=== PATIENT | female | born 1950 | race Caucasian/White ===

== ENCOUNTER 2017-01-01 03:42 | Emergency (ER) | payer OTHER ==
[~2017-01-01] VITALS: Ht 167.6 cm; Wt 65.0 kg
[~2017-01-01 03:42] MED LIST: BACL10TA; BIOTCAP PO; CLON1 PO; DILA2TAB4 PO; LACO100 PO; LORA1TAB PO; MULTTAB; POLY119S PO; SUCR1TAB PO; SYNT137T PO; TOPA200T4 PO; VITA100017 PO; ZOFR4TAB3 SL; ZOLO25TA PO
[2017-01-01 03:45] VITALS: BP 111/70; PULSE 71; RESP 14; TEMP 98.8; O2SAT 94
[2017-01-01] MEDS ORDERED: HYDR4TAB PO (04:14)
[2017-01-01] MEDS ORDERED: CLON1 PO (04:14)
[2017-01-01] MEDS ORDERED: CARB25TA9 PO (04:14)
[2017-01-01] MEDS ORDERED: CORT5TAB PO ×2 (04:14)
[2017-01-01] MEDS ORDERED: LORA-474 PO (04:14)
[2017-01-01] MEDS ORDERED: SERT25TA83 PO (04:14)
[2017-01-01] MEDS ORDERED: DONE1TAB90 PO (04:14)
[2017-01-01] MEDS ORDERED: ZOFR4TAB PO (04:14)
[2017-01-01] MEDS ORDERED: BACL10TA PO (04:14)
[2017-01-01] MEDS ORDERED: LEVO-86 PO (04:14)
[2017-01-01] MEDS ORDERED: TOPI200 PO (04:14)
[2017-01-01] MEDS ORDERED: SUCR1TAB PO (04:14)
[2017-01-01] MEDS ORDERED: LACO100 PO (04:14)
[2017-01-01] MEDS ORDERED: PROT40TA PO (04:14)
--- NOTE | 2017-01-01 04:33 | PD ---
HPI Chief Complaint: Fall Time Seen by Provider: 03:58 Travel History International Travel<30 days: No Contact w/Intl Traveler<30days: No Traveled to known affect area: No History of Present Illness HPI 66-year-old female came into the emergency room for right sided facial injury secondary to a fall while she was running. Patient says she has history of parkinsonism and she was running with a friend 2 days ago when she lost her balance and fell. She landed on the concrete on the right side of her face. She is not sure but she could've blacked out she said. Since then she's been having the facial swelling and the pain is getting worse. She also has significant nausea. Her is here with her and mentioned that she has history of brain tumor that was operated and treated in 2003. Currently she is cancer free. Patient is not on any blood thinners. [facility] Past Medical History Narrative Medical List of her past medical, surgical, social and family history is reviewed from the nursing note. Blood Disorders: No Cancer: Yes (GLEOMA BRAIN STEM) Cardiovascular Problems: No Chemotherapy: Yes (also radiation, both not at present; brain tumor) Diminished Hearing: No Endocrine: Yes Gastrointestinal Disorders: Yes GERD: Yes Genitourinary: No Headaches: Yes Implanted Vascular Access Dvce: Yes Musculoskeletal: No Neurologic: Yes (SEIZURES-+) Parkinson's Disease: Yes Psychiatric: No Reproductive: No Respiratory: No Radiation Therapy: Yes Seizures: Yes Thyroid Disease: Yes (HOSHIMOTOS) Ulcer: Yes Tetanus Vaccination: < 5 Years Influenza Vaccination: Yes : 3 Para: 3 Past Surgical History Abdominal Surgery: Yes (BOWEL RESECTION 3 FEET AND 6 FEET REMOVED FROM SMALL AND LARGE INTESTINES) Appendectomy: Yes Body Medical Devices: LEFT SC PORT Cholecystectomy: Yes Gynecologic Surgery: Yes (OVARY REMOVED STILL HAS ONE ) Hysterectomy: Yes Other Surgery: Yes (QUILLER RUNNER SHUNT X 2) Social History Alcohol Use: No Tobacco Use: No Substance Use: No Allergies-Medications (Allergen,Severity, Reaction): Coded Allergies: Bactrim (Verified Allergy, Severe, Hives, 01/01/17) Comments List of her allergies reviewed from the nursing note. Reported Meds & Prescriptions Reported Meds & Active Scripts Active Reported Cortef (Hydrocortisone) 5 Mg Tab 2.5 Mg PO HS Take with food to decrease GI upset Cortef (Hydrocortisone) 5 Mg Tab 5 Mg PO DAILY@0600 Take with food to decrease GI upset Donepezil Hydrochloride 5 Mg Tab 5 Mg PO HS Carbidopa-Levodopa 25-100 Mg Tab 1 Tab PO TID Baclofen 10 Mg Tab 10 Mg PO Q8HR PRN Hydromorphone (Hydromorphone HCl) 4 Mg Tab 4 Mg PO QID Protonix (Pantoprazole Sodium) 40 Mg Tab 40 Mg PO DAILY Synthroid (Levothyroxine Sodium) 137 Mcg Tab 137 Mcg PO DAILY Klonopin (Clonazepam) 1 Mg Tab 1 Mg PO TID Topamax (Topiramate) 200 Mg Tab 200 Mg PO BID Vimpat (Lacosamide) 100 Mg Tab 100 Mg PO TID Ativan (Lorazepam) 1 Mg Tab 1 Mg PO DAILY PRN Zofran (Ondansetron HCl) 4 Mg Tab 4 Mg PO Q12HR PRN Sertraline (Sertraline HCl) 25 Mg Tab 25 Mg PO DAILY Sucralfate 1 Gm Tab 1 Gm PO BID on empty stomach Narrative Medication List of her home medications reviewed from the nursing note. Review of Systems Except as stated in HPI: all other systems reviewed are Neg Physical Exam Narrative GENERAL: Awake, alert, moderate distress SKIN: Focused skin assessment warm/dry. Contusion on the right side of the face with some swelling and periorbital ecchymosis. HEAD: Atraumatic. Normocephalic. EYES: Pupils equal and round. No scleral icterus. No injection or drainage. Equal and conjugate extraocular movements of the eye ENT: No nasal bleeding or discharge. Mucous membranes pink and moist. NECK: Trachea midline. No JVD. CARDIOVASCULAR: Regular rate and rhythm. No murmur appreciated. RESPIRATORY: No accessory muscle use. Clear to auscultation. Breath sounds equal bilaterally. GASTROINTESTINAL: Abdomen soft, non-tender, nondistended. Hepatic and splenic margins not palpable. MUSCULOSKELETAL: No obvious deformities. No clubbing. No cyanosis. No edema. NEUROLOGICAL: Awake and alert. No obvious cranial nerve deficits. Motor grossly within normal limits. Normal speech. PSYCHIATRIC: Appropriate mood and affect; insight and judgment normal. Data Data Last Documented VS Vital Signs Date Time Temp Pulse Resp B/P Pulse Ox O2 Delivery O2 Flow Rate FiO2 01/01/17 03:45 98.8 71 14 111/[address] Brain W/O Iv Contrast(Rout) (4/28/17 ) Ct Facial Bones W/O Iv Cont (01/01/17 ) Ondansetron Odt (Zofran Odt) (01/01/17 04:45) Acetamin-Hydrocod 325-5 Mg ([place] 5-325 (01/01/17 04:45) MDM Medical Decision Making Medical Screen Exam Complete: Yes Emergency Medical Condition: Yes Medical Record Reviewed: Yes Differential Diagnosis Intracranial bleed, skull fracture, facial fracture, contusion Narrative Course 6:[address] scan was within normal limits. She has some soft tissue swelling but otherwise negative from trauma standpoint. Patient was given by mouth pain medication and nausea medicine. Patient will be discharged home. Procedures EKG Prior to Arrival: No Diagnosis Primary Impression: Fall Qualified Code: W19.XXXA - Fall, initial encounter Additional Impression: Facial contusion Qualified Code: S00.83XA - Facial contusion, initial encounter Referrals: Primary Care Physician 3 days Additional Instructions: Please apply cold compress to the swelling. Follow-up with your primary care next week. Return to the ER if the condition worsens or any other new concerns. Med/Other Pt SpecificInfo: No Change to Meds Disposition: 01 DISCHARGE HOME Condition: Stable Ricci Roberts MD Jan 01, 2017 04:33
[2017-01-01] MEDS ORDERED: ACETAMINOPHEN/HYDROcodone 325 MG/5 MG TAB PO ONE (04:45)
[2017-01-01] MEDS ORDERED: ONDANSETRON ODT 4 MG TAB PO ONE (04:45)
--- NOTE | 2017-01-01 05:23 | RADRPT ---
EXAM DATE/TIME: 01/01/2017 05:13 [facility] COMPARISON: MRI BRAIN W & W/O CONTRAST, June 22, 2016, 22:25. INDICATIONS : Trauma, fall. RADIATION DOSE: 56.35 CTDIvol (mGy) MEDICAL HISTORY : None SURGICAL HISTORY : None. ENCOUNTER: Initial ACUITY: 2 days PAIN SCALE: 5/10 LOCATION: cranial TECHNIQUE: Multiple contiguous axial images were obtained of the head. Using automated exposure control and adj ustment of the mA and/or kV according to patient size, radiation dose was kept as low as reasonably a chievable to obtain optimal diagnostic quality images. FINDINGS: Patient is shunted. Ventriculostomy catheter enters on the right. Anterior horn of the right lateral ventricle is slitlike but similar to the prior MRI. No ventriculomegaly demonstrated. No intracranial hemorrhage or hematoma. No mass, mass effect or midline shift demonstrated. No e vidence of an acute ischemic event. Skull is intact. Small debris seen in the visualized left maxillary air cell. CONCLUSION: No bleed or other acute intracranial abnormality. Chicho Schreiber MD on January 01, 2017 at 5:19 Board Certified Radiologist. This report was verified electronically.
--- NOTE | 2017-01-01 05:32 | RADRPT ---
EXAM DATE/TIME: 01/01/2017 05:15 [facility] COMPARISON: No previous studies available for comparison. INDICATIONS : Trauma, fall. RADIATION DOSE: 36.45 CTDIvol (mGy) MEDICAL HISTORY : None SURGICAL HISTORY : None. ENCOUNTER: Initial ACUITY: 2 days PAIN SCORE: 5/10 LOCATION: facial TECHNIQUE: Volumetric scanning of the facial bones was performed. Using automated exposure control and adjustme nt of the mA and/or kV according to patient size, radiation dose was kept as low as reasonably achiev able to obtain optimal diagnostic quality images. FINDINGS: ORBITS: The orbital and infraorbital osseous structures are intact. The retroconal structures have a normal configuration. No radiopaque foreign bodies are seen. NASAL BONE: The nasal bone and maxillary spine are intact ZYGOMATIC ARCHES: Symmetric without evidence of fracture. SINUSES: Small low attenuation fluid in the left maxillary air cell, does not have the appearance of blood. NASAL CAVITY: The nasal septum is intact and midline. The lacrimal ducts are intact. SOFT TISSUES: Mild swelling right cheek. INTRACRANIAL: No intracranial air seen. CRIBIFORM PLATE: Grossly intact. CONCLUSION: No facial fracture. Right cheek contusion. Left maxillary sinusitis. Chicho Schreiber MD on January 01, 2017 at 5:29 Board Certified Radiologist. This report was verified electronically.
== END 2017-01-01 06:33 | disposition home or self-care (01) ==
LOC: NEPC 03:42
DX: S09.93XA Unspecified injury of face, initial encounter (principal); G20 Parkinson's disease; W01.0XXA Fall on same level from slipping, tripping and stumbling without subsequent striking against object, initial encounter; Y93.02 Activity, running; Y92.89 Other specified places as the place of occurrence of the external cause; R56.9 Unspecified convulsions; Z98.2 Presence of cerebrospinal fluid drainage device; Z85.841 Personal history of malignant neoplasm of brain
CPT/HCPCS: 70450; 70486

== ENCOUNTER → 2017-06-23 | Outpatient (CLI) | payer OTHER ==
[~2017-06-23] VITALS: Ht 160 cm; Wt 61.8 kg
[~2017-06-23] MED LIST changes: -BACL10TA; +BACL10TA PO; -BIOTCAP PO; +CARB25TA9 PO; +CHLORHEXIDINE GLUCONATE 2 % 1 PACK (2 CLOTHS) TOPICAL PRN; +CORT5TAB PO; +DEXTROSE 5% IN WATE 1000ML INJ 1,000 ML IV SCH; -DILA2TAB4 PO; +DONE1TAB90 PO; +HYDR4TAB PO; +HYDR5TAB64 PO; +INSULIN HUMAN REGULAR 1,000 UNITS/10 ML VIAL SQ PRN; +LACTATED RINGER'S 1000 ML IV PRN; +LEVO-154 PO; +LEVO-86 PO; +LIDOCAINE HCL 1% PF 5 ML AMPULE OTHER ONE; +LORA-474 PO; -LORA1TAB PO; +METOPROLOL TARTRATE 25 MG TAB PO PRN; +MIDO10TA PO; -MULTTAB; -POLY119S PO; +POLY17S PO; +POVIDONE IODINE 5% (ANTISEPSIS KIT) 4 APPLICATIONS EACH NARE PRN; +PROPOFOL 200 MG/20 ML AMP IV ONE; +PROT40TA PO; +SERT25TA83 PO; +SODIUM CHLORID 0.9% 500 ML IV PRN; +SODIUM CHLORIDE 0.9% FLUSH 10 ML FLUSH IV FLUSH PRN; -SYNT137T PO; -TOPA200T4 PO; +TOPI200 PO; -VITA100017 PO; +ZOFR4TAB PO; -ZOFR4TAB3 SL; -ZOLO25TA PO
--- NOTE | 2017-06-23 08:15 | GIPROC ---
[facility] [address] [facility]. [facility], [address] COLONOSCOPY PROCEDURE REPORT EXAM DATE: 06/23/2017 PATIENT NAME: Riana Toney MR #: [id number] BIRTHDATE: 1950 ENDOSCOPIST: Isabelle Hurtado MD ORDER #: [id number] NIB ASSEMBLER: Kacie Mckeon and Luz Flores STATUS: outpatient INDICATIONS: The patient is a 67 yr old female here for a colonoscopy due to High Risk Screening, personal history of polyps PROCEDURE PERFORMED: Total Colonoscopy MEDICATIONS: See Anesthesia Record ESTIMATED BLOOD LOSS: None CONSENT: The patient understands the risks and benefits of the procedure and understands that these risks include, but are not limited to: sedation, allergic reaction, infection, perforation and/or bleeding. Alternative means of evaluation and treatment include, among others: physical exam, x-rays, and/or surgical intervention. The patient elects to proceed with this endoscopic procedure. DESCRIPTION OF PROCEDURE: checked for proper function. Hand hygiene and appropriate measures for infection prevention was taken. After the risks, benefits and alternatives of the procedure were thoroughly explained, Informed consent was verified, confirmed and timeout was successfully executed by the treatment team. A digital exam was performed. The endoscope was introduced through the anus and advanced to the cecum, which was identified by the appendiceal orifice, tri-radiate valve, and ileocecal valve. The prep quality was Good The instrument was then slowly withdrawn as the colon was fully examined. There were no mucosal abnormalities noted with the cecum, ascending colon, transverse colon, or descending colon,. In the sigmoid moderate diverticulosis was noted. There were no abnormalities in the rectum. The scope was then completely withdrawn from the patient and the procedure terminated. ADVERSE EVENTS: There were no complications. WITHDRAWL TIME: DEGREE OF DIFFICULTY: IMPRESSIONS: Normal Colon RECOMMENDATIONS: Followup 5 years PATIENT CONDITION: Stable DISPOSITION: Home RECALL: 5 years Isabelle Hurtado MD eSigned: Isabelle Hurtado MD 06/23/2017 8:14 AM cc: Dr. Carlos Vides PATIENT NAME: Riana Toney MR#: [id number]
[2017-06-23 08:51] VITALS: BP 149/83; PULSE 58; RESP 16; TEMP 97.5; O2SAT 99
== END ==
LOC: HSDC 05:53
PROVIDERS: ATTEND Colon & Rectal Surgery
DX: Z86.010 Personal history of colon polyps (principal); K57.30 Diverticulosis of large intestine without perforation or abscess without bleeding; R56.9 Unspecified convulsions; R15.9 Full incontinence of feces
CPT/HCPCS: 00810; 45378; J7120